=== PATIENT | male | born 1975 | race Caucasian/White ===

== ENCOUNTER 2021-07-28 10:26 | Observation (INO) | payer OTHER, SELFPAY ==
--- NOTE | ~2021-07-28 | CT_ITS ---
EXAMINATION: CT abdomen pelvis wo con EXAM DATE: 07/28/2021 13:10 INDICATION: rlq pain, likely appy. Decreased appetite. Symptoms 2 weeks. TECHNIQUE: Spiral CT of the abdomen and pelvis was performed without contrast. Axial, coronal and s agittal images of the abdomen and pelvis were reviewed. The dose-length product (DLP) for this exami nation was 374.48 mGy-cm. The exposure was tailored according to patient size (auto mA exposure cont rol), and iterative reconstruction (ASIR) was used as additional dose reduction technique. There is no prior study for comparison. FINDINGS: Appendix is dilated, has moderate amount of adjacent inflammation, does not appear obstruct ed or fluid-filled. There is no appendicolith or periappendiceal abscess. Appearance is consistent wi th acute or subacute uncomplicated appendicitis. There is nii mesentery appearance, a nonspecific finding but most commonly caused by infiltration w ith inflammatory cells, chronic mesenteric panniculitis. Scattered mesenteric lymph nodes are within normal size limits. The liver, spleen, adrenal glands and pancreas are unremarkable. Gallbladder is unremarkable. No bi liary obstruction. There is no nephrolithiasis or hydronephrosis. The prostate is unremarkable. T he bladder is unremarkable. There is no retroperitoneal or pelvic lymphadenopathy. The stomach and small bowel are unremarkable. There is expected amount of colonic stool. No free i ntraperitoneal gas. The heart is normal in size. There are no pericardial or pleural effusions. B ibasilar subsegmental dependent atelectasis. There are no osteoblastic or osteolytic lesions identif ied. IMPRESSION: 1. Acute or subacute uncomplicated appendicitis. 2. 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 Reviewed, dictated and finalized at location B. [employer] BUSINESS CONSULTANT IMPRESSION: 1. Acute or subacute uncomplicated appendicitis. 2. Nii mesentery, appearance most consistent with chronic mesenteric pannicul itis.
[2021-07-28 10:52] VITALS: BP 117/78; PULSE 114; RESP 18; TEMP 37; O2SAT 98
[2021-07-28 11:29] LABS: Basophils Absolute Auto 0.1 K/mm3 (0.0-0.1); Basophils Percent Auto 0.3 % (0.2-1.2); Eosinophils Absolute Auto 0.1 K/mm3 (0-0.3); Eosinophils Percent Auto 0.2 % (0-4.4); Immature Granulocyte Absolute 0.22 K/mm3 (0.00-0.031); Immature Granulocyte Percent A 0.8 % (0-0.5); Lymphocytes Absolute Auto 3.17 K/mm3 (0.9-3.2); Mean Corpuscular Hemoglobin 29.6 pg (26-34); Mean Corpuscular Volume 86.9 fl (80-100); Mean Platelet Volume 10.4 fl (7.4-10.4); Monocytes Absolute Auto 1.4 K/mm3 (0.1-0.6); Monocytes Percent Auto 5.2 % (2.6-8.5); Neutrophils Absolute Auto 21.5 K/mm3 (1.3-6.7); Neutrophils Percent Auto 81.5 % (45.5-73.1); Platelet Count Result 277 k/mm3 (150-375); Red Blood Count 5.41 M/mm3 (4.6-6.20); Red Cell Distribution Width 13.8 % (11.5-14.5); White Blood Count 26.4 K/mm3 (4.5-10.0)
[2021-07-28 11:35] LABS: Add Urine Microscopic? YES; Appearance Urine Cloudy (Clear); Bilirubin Urine Negative (Negative); Blood Urine 2+ (Negative); Color Urine Amber (Yellow); Glucose Urine UA 1+ mg/dL (Negative); Ketones Urine Negative (Negative); Leukocyte Esterase Ur Negative LEU/UL (Negative); Mucus Urine Heavy /lpf; Nitrate Urine Negative (Negative); Protein Urine 2+ mg/dL (Negative); WBC Urine 0-3 /hpf
[2021-07-28 11:42] LABS: Alanine Aminotransferase 28 U/L (4-50); Albumin Level 4.6 g/dL (3.5-5.1); Alkaline Phosphatase 72 U/L (38-126); Anion Gap 8 mmol/L (8-16); Aspartate Amino Transferase 24 U/L (17-59); Bilirubin,Total 0.9 mg/dL (0.2-1.3); Blood Urea Nitrogen 11 mg/dL (9-20); Calcium 10.4 mg/dL (8.4-10.2); Carbon Dioxide 25 mmol/L (22-30); Chloride 103 mmol/L (98-107); Estimated CRCL calculation 83 ml/min; Estimated Glomerular Filt Rate > 60; Glucose 152 mg/dL (65-110); Lipase 46 U/L (23-300); Potassium 3.5 mmol/L (3.4-5.0); Sodium 136 mmol/L (137-145); Specific Grav Ur 1.032 (1.001-1.035)
[2021-07-28] MEDS: NICOTINE (*PBKC) 21 MG PATCH 1 PATCH TRANSDERM (14:57)
[2021-07-28] MEDS: ONDANSETRON INJ 4 MG/2 ML VIAL IV PUSH (14:59)
--- NOTE | 2021-07-28 15:11 | ED.ABDPAIN ---
HPI - Abdominal Pain General Chief Complaint: Abdominal Pain Stated Complaint: abd pain Time Seen by Provider: 07/28/21 12:47 Source: patient and family Mode of arrival: ambulatory Limitations: no limitations History of Present Illness HPI narrative: 46-year-old male Here for abdominal pain Patient says that he has been more constipated for a week or 2 However he now has a 2-day history of pretty severe and worsening pain which is well localized in the right lower quadrant Pain is worse with movement or palpation He has nausea but has not vomited, does not have a fever Related Data Allergies Allergy/AdvReac Type Severity Reaction Status Date / Time No Known Allergies Allergy Unverified 12/03/13 11:16 Review of Systems Review of Systems: All systems reviewed & are unremarkable except as noted in HPI and below Constitutional: Constitutional: Denies chills, Denies fever(s) and Denies headache(s) ENT: Denies headache(s) and Denies sore throat Cardiovascular: Cardiovascular: Denies chest pain and Denies dyspnea Respiratory: Respiratory: Denies cough and Denies dyspnea Gastrointestinal: Gastrointestinal: Reports abdominal pain, Reports constipation, Denies diarrhea, Reports nausea and Denies vomiting Genitourinary: Genitourinary: Denies dysuria and Denies urinary frequency Musculoskeletal: Musculoskeletal: Denies deformity, Denies arthralgias, Denies joint swelling and Denies numbness Integumentary/Breasts: Skin/Breast: Denies rash and Denies wounds Neurologic: Denies headache(s), Denies focal weakness and Denies numbness Psychiatric: Psychiatric: Reports no additional psychiatric complaints Endocrine: Endocrine: Reports no additional endocrine complaints Hematologic/Lymphatic: Hematologic/Lymphatic: Reports no additional hematologic/lymphatic complaints Allergic/Immunologic: Allergic/Immunologic: Reports no additional allergic/immunologic complaints Exam Const: General: cooperative, no acute distress and alert Orientation/consciousness: patient oriented x3 (alert) HENMT: Head: normal to inspection, normocephalic and atraumatic Ears: external ears normal General nose exam: no epistaxis Eyes: Conjunctivae: conjunctivae normal EOM: EOMs intact bilaterally Neck: Neck: normal visual inspection, supple and no JVD Resp: Effort & Inspection: normal respiratory effort and not labored Auscultation: clear to auscultation bilaterally, no rales, no rhonchi, no wheezes and other (BS =) Cardio: Rate: regular rate Rhythm: regular rhythm Heart sounds: no murmurs GI: GI Palp: Yes Soft to palpation, Yes Tenderness to palpation present (GI), Yes Guarding due to palpation present (GI) and Yes Rebound tenderness present Skin: General skin exam: normal color and no rashes or lesions noted Neuro: General: patient oriented x3 (alert) and moves all extremities Speech: normal speech Extrem: General: normal to inspection and no pedal edema Psych: Affect: normal affect Course Course Emergency Course: Discussed with and seen by surgery in the ED Vital Signs Vital signs: Vital Signs Temperature 37.0 C 07/28/21 10:52 Pulse Rate 114 H 07/28/21 10:52 Respiratory Rate 18 07/28/21 10:52 Blood Pressure 117/78 07/28/21 10:52 Pulse Oximetry 98 07/28/21 10:52 Temperature 37.0 C 07/28/21 10:52 Pulse Rate 114 H 07/28/21 10:52 Respiratory Rate 18 07/28/21 10:52 Blood Pressure 117/78 07/28/21 10:52 Pulse Oximetry 98 07/28/21 10:52 MDM - Abdominal Pain Differential Diagnosis Differential diagnosis: Likely acute appendicitis Lab Data Attestation: I reviewed the patient's lab results. Result diagrams: 07/28/21 11:06 07/28/21 11:06 Labs: Lab Results 07/28/21 07/28/21 07/28/21 Range/Units 11:06 11:06 11:06 WBC 26.4 H (4.5-10.0) K/mm3 RBC 5.41 (4.6-6.20) M/mm3 Hgb 16.0 (14.0-18.0) g/dL Hct 47.0 (42.0-52.0) % MCV 86.9 (80-100
--- NOTE | 2021-07-28 15:19 | PC.NURSE ---
Dr Hicks at bedside
[2021-07-28] MEDS: MORPHINE SULFATE (*CRX) 4 MG/ML INJ IV PUSH (15:37)
[2021-07-28] MEDS: LACTATED RINGERS 1,000 ML 999 ML IV CONT (15:37)
[2021-07-28 16:25] VITALS: BP 106/70; PULSE 88; RESP 16; O2SAT 97
[2021-07-28 17:06] VITALS: BP 106/75; PULSE 87; RESP 16; O2SAT 97
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
[2021-07-28 18:30] VITALS: BP 110/73; PULSE 89; RESP 16; TEMP 36.8; O2SAT 100
--- NOTE | 2021-07-28 18:40 | ADMGEN ---
This patient, Kd Batres, was admitted to Medical Room 250-01. Patient/family oriented to hospital policies and general routines including ID bracelet, bed and alarms, visiting hours, pain management, procedures, bathroom and other care routines, personal items, smoking policy, room service/diet, and visiting hours. Information on how to activate the Rapid Response Team has been discussed. Patient/Family are encouraged to report perceived risks to care and to ask questions if they do not understand what they are told or what they should do.
[2021-07-28 18:49] VITALS: BMI 24.3
[2021-07-28] MEDS: LACTATED RINGERS 1,000 ML 150 ML IV CONT (18:54)
[2021-07-28] MEDS: PANTOPRAZOLE SODIUM IV 40 MG VIAL IV PUSH (18:58)
[2021-07-28 20:00] VITALS: PULSE 89; RESP 16; O2SAT 100
[2021-07-28] MEDS: HYDROcodone/acetaminophen (*CRX) 5-325 MG TABLET 1 TAB PO (20:43)
[2021-07-28 22:00] VITALS: BP 102/60; PULSE 90; RESP 18; TEMP 36.7; O2SAT 96
[2021-07-29] VITALS (17 sets, daily range): BP systolic 100–146; BP diastolic 53–91; PULSE 70–99; RESP 10–18; TEMP 36.6–36.9; O2SAT 88–100
[2021-07-29 05:40] LABS: Basophils Percent Auto 0.3 % (0.2-1.2); Eosinophils Absolute Auto 0.1 K/mm3 (0-0.3); Eosinophils Percent Auto 0.7 % (0-4.4); Hematocrit 44.6 % (42.0-52.0); Hemoglobin 14.6 g/dL (14.0-18.0); Immature Granulocyte Absolute 0.08 K/mm3 (0.00-0.031); Immature Granulocyte Percent A 0.5 % (0-0.5); Lymphocytes Absolute Auto 2.31 K/mm3 (0.9-3.2); Lymphocytes Percent Auto 14.6 % (18.3-44.2); Mean Corpuscular HGB Conc 32.7 g/dl (32-36); Mean Corpuscular Volume 88.5 fl (80-100); Mean Platelet Volume 10.2 fl (7.4-10.4); Monocytes Absolute Auto 1.1 K/mm3 (0.1-0.6); Monocytes Percent Auto 6.8 % (2.6-8.5); Neutrophils Absolute Auto 12.2 K/mm3 (1.3-6.7); Neutrophils Percent Auto 77.1 % (45.5-73.1); Platelet Count Result 236 k/mm3 (150-375); Red Blood Count 5.04 M/mm3 (4.6-6.20); Red Cell Distribution Width 13.8 % (11.5-14.5); White Blood Count 15.8 K/mm3 (4.5-10.0)
[2021-07-29 05:50] LABS: Anion Gap 8 mmol/L (8-16); Blood Urea Nitrogen 10 mg/dL (9-20); Carbon Dioxide 30 mmol/L (22-30); Chloride 102 mmol/L (98-107); Estimated CRCL calculation 85 ml/min; Estimated Glomerular Filt Rate > 60; Glucose 97 mg/dL (65-110); Potassium 3.7 mmol/L (3.4-5.0); Sodium 140 mmol/L (137-145)
--- NOTE | 2021-07-29 06:21 | PC.NURSE ---
PT TRANSFERED TO SURGERY 0610. MEDS SENT WITH CHART. CONSENT SIGNED
--- NOTE | 2021-07-29 06:50 | WPDANESEPPF ---
Anes - Initial Pre Proc Eval Procedure: Operation Date: 07/29/21 07:30 Proposed Procedures p Laparoscopic Appendectomy,Possible Open - Rocky Hicks MD Date/Time: 07/29/21 06:50 Surgeon: Rocky Hicks MD Pre Op Diagnosis: acute appendicites Patient Data Age: 46 Gender: M Height: 1.77 m Weight: 76 kg Last Vital Signs Temp 36.6 C 07/29/21 06:00 Pulse 95 07/29/21 06:00 Resp 18 07/29/21 06:00 BP 100/53 L 07/29/21 06:00 Pulse Ox 96 07/29/21 06:00 Allergies Allergy/AdvReac Type Severity Reaction Status Date / Time No Known Allergies Allergy Unverified 07/28/21 18:30 Home Medications Medication Instructions Recorded Confirmed Type No Home Medications 07/28/21 07/28/21 History Laboratory Tests 07/28/21 07/28/21 07/28/21 11:06 11:06 11:06 WBC 26.4 K/mm3 H K/mm3 (4.5-10.0) RBC 5.41 M/mm3 M/mm3 (4.6-6.20) Hgb 16.0 g/dL g/dL (14.0-18.0) Hct 47.0 % % (42.0-52.0) MCV 86.9 fl fl (80-100) MCH 29.6 pg pg (26-34) MCHC 34.0 g/dl g/dl (32-36) RDW 13.8 % % (11.5-14.5) Plt Count 277 k/mm3 k/mm3 (150-375) MPV 10.4 fl fl (7.4-10.4) Immature Gran % (Auto) 0.8 % H % (0-0.5) Neut % (Auto) 81.5 % H % (45.5-73.1) Lymph % (Auto) 12.0 % L % (18.3-44.2) [place] % (Auto) 5.2 % % (2.6-8.5) Eos % (Auto) 0.2 % % (0-4.4) Baso % (Auto) 0.3 % % (0.2-1.2) Lymph # (Auto) 3.17 K/mm3 K/mm3 (0.9-3.2) [place] # (Auto) 1.4 K/mm3 H K/mm3 (0.1-0.6) Eos # (Auto) 0.1 K/mm3 K/mm3 (0-0.3) Baso # (Auto) 0.1 K/mm3 K/mm3 (0.0-0.1) Abs Immat Gran (auto) 0.22 K/mm3 H K/mm3 (0.00-0.031) Absolute Neuts (auto) 21.5 K/mm3 H K/mm3 (1.3-6.7) Absolute Nucleated RBC 0.0 K/mm3 K/mm3 (0.0-0.012) Nucleated RBC % 0.0 % % (0.0-0.2) Sodium 136 mmol/L L mmol/L (137-145) Potassium 3.5 mmol/L mmol/L (3.4-5.0) Chloride 103 mmol/L mmol/L (98-107) Carbon Dioxide 25 mmol/L mmol/L (22-30) Anion Gap 8 mmol/L mmol/L (8-16) BUN 11 mg/dL mg/dL (9-20) Creatinine 1.00 mg/dL mg/dL (0.7-1.3) Estim Creat Clear Calc 83 ml/min ml/min Estimated GFR > 60 (59 - ) Glucose 152 mg/dL H mg/dL (65-110) Calcium 10.4 mg/dL H mg/dL (8.4-10.2) Total Bilirubin 0.9 mg/dL mg/dL (0.2-1.3) AST 24 U/L U/L (17-59) ALT 28 U/L U/L (4-50) Alkaline Phosphatase 72 U/L U/L (38-126) Total Protein 8.0 g/dL g/dL (6.3-8.2) Albumin 4.6 g/dL g/dL (3.5-5.1) Lipase 46 U/L U/L (23-300) Urine Color Liz (Yellow) Urine Appearance Cloudy H (Clear) Urine pH 5.0 (5.0-9.0) Ur Specific [place] 1.032 (1.001-1.035) Urine Protein 2+ mg/dL H mg/dL (Negative) Urine Glucose (UA) 1+ mg/dL H mg/dL (Negative) Urine Ketones Negative mg/dL mg/dL (Negative) Ur Blood (Man) 2+ H (Negative) Urine Nitrate Negative (Negative) Urine Bilirubin Negative (Negative) Urine Urobilinogen 2.0 mg/dL H mg/dL (<2.0) Leukocyte Esterase Rfl Negative MORENO/UL MORENO/UL (Negative) Urine RBC 3-5 /hpf H /hpf (0-2) Urine WBC 0-3 /hpf /hpf Urine Mucus Heavy /lpf H /lpf 07/29/21 07/29/21 05:09 05:09 WBC 15.8 K/mm3 H K/mm3 (4.5-10.0) RBC 5.04 M/mm3 M/mm3 (4.6-6.20) Hgb 14.6 g/dL g/dL (14.0-18.0) Hct 44.6 % % (42.0-52.0) MCV 88.5 fl fl (80-100) MCH 29.0 pg pg (26-34) MCHC 32.7 g/dl g/dl (32-36) RDW 13.8 % % (11.5-14.5) Plt Count 236 k/mm3 k/mm3 (150-375) MPV 10.2 fl fl (7.
[2021-07-29] MEDS: LACTATED RINGERS 1,000 ML 30 ML IV CONT ×2 (07:00→09:33)
--- NOTE | 2021-07-29 07:04 | WPDHPUPDATE1 ---
History and Physical Update Update Date/Time: 07/29/21 07:04 History and Physical has been reviewed, including an updated exam of the patient. There are changes in the patient's condition. The pt has less pain, no trouble with urinating, and WBC down to 15,000. Risks, benefits, and alternatives have been discussed and questions answered. Patient agrees to proceed with procedure.
--- NOTE | 2021-07-29 09:34 | W.PM.PROC2 ---
Procedure Note - Detailed Date of Procedure 07/29/21 Pre-op Diagnosis acute uncomplicated appendicites Post-op Diagnosis other (Acute uncomplicated appendicitis (retrocecal)) Procedure Performed laparoscopic appendectomy Surgeon Rocky Hicks MD Retail Marketing Coordinator Adan VALLADARES. [place] Message Broker Developer Anesthesia general Indications Patient has significantly elevated white blood cell count and CT scan and exam consistent with acute uncomplicated appendicitis. Findings Patient had what appeared to be a chronically or and acutely inflamed appendix distal half with the appendix resting behind the cecum with the tip pointing toward the right lobe of the liver. It was sitting between the cecum and the right colic gutter. Description of Procedure The patient was seen again in the Holding Room. The risks, benefits, complications, treatment options, and expected outcomes were discussed with the patient and/or family. The possibilities of reaction to medication, pulmonary aspiration, perforation of viscus, bleeding, recurrent infection, finding a normal appendix, the need for additional procedures, failure to diagnose a condition, and creating a complication requiring transfusion or operation were discussed. There was concurrence with the proposed plan and informed consent was obtained. The site of surgery was properly noted/marked. The patient was taken to Operating Room, and a time out was preformed which identified this as the proper patient, and the procedure verified as laparoscopic appendectomy, possible open. The patient was placed in the supine position and general anesthesia was induced, along with placement of an orogastric tube, SCD hose, and a Lambert catheter. The abdomen was prepped and draped in a sterile fashion. A 5 mm umbilical incision was made and the peritoneal cavity was accessed using the Veress needle technique. Once the abdomen was insufflated to 14 mmHg pressure a 5 mm XL trocar over the 0? 5 mm scope was carefully twisted into the abdomen via the umbilicus. The pneumoperitoneum was then established to steady pressure of 14 mm Hg. A 12 mm laparoscopic port was placed through a transverse suprapubic incision. An additional 5 mm cannula was then placed in the left lower quadrant of the abdomen at a level half way between the umbilicus and pubic symphysis under direct vision. A careful evaluation of the entire abdomen was carried out. The patient was placed in Trendelenburg and left lateral decubitus position. The small intestines were retracted in the cephalad and left lateral direction away from the pelvis and right lower quadrant. The patient was found to have an enlarged and inflamed appendix that was extending into the right colic gutter with it's tip pointing toward the Rt.lateral tip of the liver. It was in the retro cecal position therefore, I off actually had the oxidation operator bring the head up to let the intestines fall away from the area and we rotated him more to the left. This allowed for room for dissection. The medial wall the appendix was densely adhered to the posterior lateral side of the cecum. Therefore after dissecting its lateral wall up to what I thought perhaps was the tip we decided to come across the base the appendix with the stapler 1st. A small opening was made in the mesoappendix adjacent to the base the appendix that could easily be seen and was not as inflamed. The appendix was then divided at its base using a 45 mm stapler with a 3.5 mm bowel wall load. Minimal appendiceal stump was left in place. There was no evidence of bleeding, leakage, or complication after division of the appendix at its junction with the cecum. The appendix was carefully dissected. Once it was free and more away from the lateral wall of the cecum and rt.colon, a 45 mm ethicon endogastroentestinal stapler with a vascular load was placed across the mesoappendix. This was fired and hemostasis was checked along the staple line and appeared to be adequate. Th
[2021-07-29] MEDS: fentaNYL CITRATE INJ (*CRX) 100 MCG/2 ML VIAL 25 MCG IV PUSH ×2 (09:58→10:03)
--- NOTE | 2021-07-29 10:35 | PC.NURSE ---
Returned from OR via stretcher.
[2021-07-29] MEDS: LACTATED RINGERS 1,000 ML 150 ML IV CONT (10:51)
[2021-07-29] MEDS: HYDROcodone/acetaminophen (*CRX) 5-325 MG TABLET 1 TAB PO ×2 (12:04→23:57)
[2021-07-29] MEDS: PANTOPRAZOLE SODIUM IV 40 MG VIAL IV PUSH (17:42)
[2021-07-29] MEDS: LACTATED RINGERS 1,000 ML 100 ML IV CONT (18:38)
[2021-07-29] MEDS: SENNA/DOCUSATE SODIUM TABLET 2 TAB PO (20:10)
[2021-07-30 03:35] VITALS: BP 103/58; PULSE 72; RESP 16; TEMP 36; O2SAT 96
[2021-07-30 05:37] LABS: Hematocrit 37.5 % (42.0-52.0); Hemoglobin 12.5 g/dL (14.0-18.0); Mean Corpuscular HGB Conc 33.3 g/dl (32-36); Mean Corpuscular Hemoglobin 28.7 pg (26-34); Mean Platelet Volume 10.3 fl (7.4-10.4); Platelet Count Result 246 k/mm3 (150-375); Red Blood Count 4.36 M/mm3 (4.6-6.20); Red Cell Distribution Width 13.2 % (11.5-14.5); White Blood Count 16.5 K/mm3 (4.5-10.0)
[2021-07-30 05:49] LABS: Anion Gap 7 mmol/L (8-16); Blood Urea Nitrogen 9 mg/dL (9-20); Calcium 8.3 mg/dL (8.4-10.2); Carbon Dioxide 27 mmol/L (22-30); Chloride 101 mmol/L (98-107); Estimated CRCL calculation 93 ml/min; Estimated Glomerular Filt Rate > 60; Glucose 122 mg/dL (65-110); Potassium 3.6 mmol/L (3.4-5.0); Sodium 135 mmol/L (137-145)
[2021-07-30 08:22] VITALS: PULSE 72; RESP 16; O2SAT 96
[2021-07-30] MEDS: ENOXAPARIN 40 MG/0.4 ML SYRINGE SUB-Q (08:22)
[2021-07-30] MEDS: HYDROcodone/acetaminophen (*CRX) 5-325 MG TABLET 1 TAB PO ×2 (08:32→15:21)
[2021-07-30 09:58] VITALS: BP 122/72; PULSE 73; RESP 14; TEMP 37.2; O2SAT 96
--- NOTE | 2021-07-30 12:32 | WPDANESPN ---
Anes - Prog Note Post-Op Date/Time: 07/30/21 12:32 Cardiovascular status: normal Respiratory status: normal Airway patency: baseline Mental status: baseline Post-Op hydration status: normal Vital Signs: Last Vital Signs Temp 37.2 C 07/30/21 09:58 Pulse 73 07/30/21 09:58 Resp 14 07/30/21 09:58 BP 122/72 07/30/21 09:58 Pulse Ox 96 07/30/21 09:58 Pain Score (VAS): 0 I/O: Intake & Output 07/29/21 07/30/21 07/30/21 23:59 07:59 15:59 Intake Total 1910 1322 290 Output Total 1280 100 10 Balance 630 1222 280 Laboratory Tests 07/30/21 05:12 07/30/21 05:12 07/30/21 07/30/21 05:12 05:12 WBC 16.5 H RBC 4.36 L Hgb 12.5 L Hct 37.5 L MCV 86.0 MCH 28.7 MCHC 33.3 RDW 13.2 Plt Count 246 MPV 10.3 Sodium 135 L Potassium 3.6 Chloride 101 Carbon Dioxide 27 Anion Gap 7 L BUN 9 Creatinine 0.90 Estim Creat Clear Calc 93 Estimated GFR > 60 Glucose 122 H Calcium 8.3 L Post-procedural complaints: none Patient Feedback: Patient satisfied with anesthetic care.
[2021-07-30 13:57] VITALS: BP 118/70; PULSE 86; RESP 16; TEMP 36.9; O2SAT 96
--- NOTE | 2021-07-30 15:41 | PM.DS ---
DS: Admitting Diagnosis Discharge Date 07/30/2021 Admitting Diagnosis acute uncomplicated appendicitis DS: Discharge Diagnosis Discharge Diagnosis (1) Acute appendicitis, uncomplicated: Onset Date: ~07/26/21 Code(s): K35.80 - Unspecified acute appendicitis Status: Acute Assessment and Plan: this was the main reason for admission. Day following admission the patient went to the operating room for surgical intervention after being on antibiotics for approximately 12-18 hours. He was found to have a retrocecal appendix with the tip of the appendix pointing toward the tip of the right lobe of the liver. This was somewhat difficult to remove but eventually we were able to remove this laparoscopically. There was cavity against the peritoneum with the right colon overlying this I thought of best to drain this to prevent abscess formation. ( I did see a small amount of pus so it is unclear clear whether not that was and iron Tr[place]enta can tree into the appendix or whether the panic side actually ruptured and was walled off ). Therefore, he was kept overnight since he was still having affects of anesthesia and his diet was not able to be advanced in the usual manner. However, on postop day 1 he was feeling well he had been up walking the hallways he would tolerating a soft diet and there was minimal serosanguineous drainage coming from the drain. Therefore the drain was removed and the patient will be sent home on 1/2 days of narcotic pain pills. Following that since easily takes Tylenol on also smokes some marijuana for his back pain and his knee pain he will convert to those methods of pain control. I will follow up in approximately 2 weeks in the office. (2) Tobacco abuse disorder: Onset Date: Unknown Code(s): Z72.0 - Tobacco use Status: Acute Assessment and Plan: Encouraged the patient to stop smoking once he goes home a however we know that this may be difficult for him. I gave him a information she regarding smoking cessation and talk to him and his about this for more than 10 minutes. They will consider together whether not they may be able to try to stop smoking cigarettes. He also smokes marijuana frequently because of trying to control some back pain and knee pain that he has. This can be addressed further in the office in the future. (3) Mesenteric panniculitis: Onset Date: ~07/2021 Code(s): K65.4 - Sclerosing mesenteritis Status: Acute Assessment and Plan: This was incidentally noted in the mesentery of the small bowel on CT scan no specific abnormalities were noted within the abdomen or on the mesentery of the small bowel during his surgery. (4) Back pain: Onset Date: Unknown Code(s): M54.9 - Dorsalgia, unspecified Status: Acute DS: Summary Hospital Course Reason for hospitalization: Acute uncomplicated appendicitis. Hospital Course: patient presented to the emergency room with signs and symptoms of acute appendicitis. His symptoms started approximately 24-36 hours prior to arrived at the emergency room. Workup the emergency rooms showed elevated white count and a CT scan suggesting acute appendicitis. He was kept overnight since he was still having affects of anesthesia and his diet was not able to be advanced in the usual manner. However, on postop day 1 he was feeling well he had been up walking the hallways he would tolerating a soft diet and there was minimal serosanguineous drainage coming from the drain. Therefore the drain was removed and the patient will be sent home on 1/2 days of narcotic pain pills. Following that since easily takes Tylenol on also smokes some marijuana for his back pain and his knee pain he will convert to those methods of pain control. I will follow up in approximately 2 weeks in the office. Time spent discussing smoking cessation with patient: more than 10 minutes Status at Discharge Cognitive/
== END 2021-07-30 16:10 | disposition home or self-care (01) ==
LOC: ANHED 15:45 → ANH2MED 17:04
PROVIDERS: Emergency Medicine; Admitting Provider Surgery; Emergency Provider Emergency Medicine; PCP Physician Assistant; Visit Provider Surgery
PROC: 0DTJ4ZZ Resection of Appendix, Percutaneous Endoscopic Approach (ICD-10-PCS; CPT 44970; principal; 2021-07-29 07:30)
DX: K35.30 Acute appendicitis with localized peritonitis, without perforation or gangrene (principal); M54.9 Dorsalgia, unspecified; F17.210 Nicotine dependence, cigarettes, uncomplicated; F12.90 Cannabis use, unspecified, uncomplicated; D12.1 Benign neoplasm of appendix
CPT/HCPCS: 44970; 36415; 74176; 80048; 80053; 81001; 83690; 85025; 85027; 88304; 96360; 96361; 96365; 96375; 99285; A9270; C9113; G0378; G0379; J1100; J1650; J2250; J2270; J2405; J2543; J2704; J2710; J3010; J7120

== ENCOUNTER 2021-08-13 10:43 | Outpatient (CLI) | payer OTHER, SELFPAY ==
--- NOTE | ~2021-08-13 | XR_ITS ---
XR knee LT 3V 08/13/2021 11:07 INDICATION: Left knee pain PROCEDURE: 3 views left knee COMPARISON: No prior studies for comparison. FINDINGS: Fracture, dislocation or subluxation is not identified. The soft tissues appear within norm al limits. No foreign bodies are identified. IMPRESSION: 1: NO ACUTE BONE OR JOINT ABNORMALITY IDENTIFIED. Reviewed, dictated and finalized at location B. ATIONS DISPATCHER
== END 2021-08-13 10:44 | disposition home or self-care (01) ==
LOC: ANHIMG 10:50
PROVIDERS: PCP Physician Assistant; Visit Provider Surgery
DX: M25.562 Pain in left knee (principal)
CPT/HCPCS: 73562